=== PATIENT | male | born 1960 | race Caucasian/White ===

== ENCOUNTER 2018-09-11 15:36 | Outpatient (CLI) | payer OTHER ==
--- NOTE | 2018-09-12 15:48 | XRAY Report ---
Reason: LOW BACK PAIN Procedure Date: 09/11/2018 Accession Number: [id number] / [id number] Procedure: XRN - Lumbar Spine 2 View CPT Code: FULL RESULT: EXAM: LUMBOSACRAL SPINE RADIOGRAPHY EXAM DATE: 09/11/2018 03:52 PM. CLINICAL HISTORY: Low back pain. COMPARISONS: None. TECHNIQUE: 3 views. FINDINGS: Alignment: Dextroconvex lumbar scoliosis centered about L3 with compensatory levoconvex scoliosis at L5/L6. Bones: There are 6 lumbar type vertebral bodies due to lumbarization of S1, for the purpose of this report referred to as L6. The bones are qualitatively osteopenic; this limits evaluation for underlying fractures or masses. No definite fracture is detected. Disks: Multilevel loss of disk space height with marginal osteophytosis. Facets: At least moderate facet arthropathy of the lower lumbar spine. Sacroiliac Joints: Unremarkable. Soft Tissues: Normal. The visualized bowel gas pattern is normal. IMPRESSION: Lumbarization of S1 and scoliosis with associated degenerative changes. [facility]
== END 2018-09-11 15:37 | disposition home or self-care (01) ==
LOC: DI.N 15:36
PROVIDERS: ATTEND Internal Medicine
DX: M51.36 Other intervertebral disc degeneration, lumbar region (principal); M47.9 Spondylosis, unspecified; M85.88 Other specified disorders of bone density and structure, other site; M41.9 Scoliosis, unspecified
CPT/HCPCS: 72100